=== PATIENT | male | born 1995 | race Caucasian/White ===

== ENCOUNTER 2023-02-23 00:43 | Emergency (ER) | payer MEDICAID, OTHER ==
[2023-02-23] MEDS ORDERED: CEPH500T PO (16:07)
== END 2023-02-23 02:10 | disposition left against medical advice (07) ==
LOC: ER 00:48
DX: L08.9 Local infection of the skin and subcutaneous tissue, unspecified (principal)

== ENCOUNTER 2023-02-23 15:04 | Emergency (ER) | payer MEDICAID ==
[~2023-02-23] VITALS: Ht 185.4 cm; Wt 82.0 kg
[2023-02-23] MEDS ORDERED: NS IV 1000 ML 1,000 ML IV SCH (15:45)
--- NOTE | 2023-02-23 16:00 | ED Lower Extremity ---
General Chief Complaint: Lower Extremity Stated Complaint: PROBLEMS WITH STITCHES ON RIGHT FOOT Nursing Triage Note: PT AMB TO FT WITH C/O STITCHES BUSTING 3 DAYS AGO AFTER HAVING TOES AMPUTATED ON R FOOT FOR DIABETIC REASONS. PT MOVED HERE THIS WEEKEND Source: patient Exam Limitations: no limitations History of Present Illness Date Seen by Provider: Feb 23, 2023 Time Seen by Provider: 15:23 Initial Comments 27-year-old male presents to the ER with concern of infection to his right foot. He reports that approximately 3 to 4 weeks ago he had all of the toes of his right foot amputated due to his diabetes. A few weeks prior to that he had the second and third digit of the left foot amputated as well due to diabetes. Patient reports that 2 days ago the sutures on his right foot popped open because he moved down here and had to unload a [employer] by himself. He complains of pain in his right foot. Denies any order to the wound. No significant purulent drainage. Denies fevers and body aches. The surgeries were completed by Dr. Marquis at [place] in [facility]. Allergies and Home Medications Allergies Coded Allergies: amoxicillin (Verified Allergy, Unknown, Hives, 02/23/23) dihydrostreptomycin (Verified Allergy, Unknown, 02/23/23) Patient Home Medication List Home Medication List Reviewed: Yes Cephalexin (Cephalexin) 500 Mg Tablet, 500 MG PO QID Prescribed by: Darlin Poole on 02/23/23 1607 Review of Systems Constitutional: see HPI Past [id number]-Lmxpok Hx Patient Social History Tobacco Use?: Yes Tobacco type used: Cigarettes Substance use?: Yes Substance type: Marijuana Alcohol Use?: Yes Alcohol Frequency: Once in a while Pt feels they are or have been: No Past Medical History Surgery/Hospitalization HX: DM R AND L TOE AMPUTATIONS Physical Exam Vital Signs Vital Signs - First Documented 02/23/23 15:24 Temp 36.8 Pulse 96 Resp 20 B/P (MAP) 151/103 (119) Pulse Ox 100 O2 Delivery Room Air Capillary Refill : Height, Weight, BMI Height: '" Weight: lbs. oz. kg; 23.00 BMI Method: General Appearance: WD/WN, no apparent distress Neck: supple, normal inspection Cardiovascular: regular rate, rhythm Respiratory: lungs clear, normal breath sounds, no respiratory distress, no accessory muscle use Feet: right foot pain, right foot other (Erythema, bed wound has pink granulated tissue, no significant signs of infection, there is surrounding erythema to the foot no significant purulent drainage) Neurologic/Psychiatric: alert, normal mood/affect Skin: warm/dry, other (Wounds to bilateral feet.) Progress/Results/Core Measures Results/Orders Lab Results Laboratory Tests Test 02/23/23 15:30 Range/Units Glucometer 208 H 70-110 MG/DL Vital Signs/I&O 02/23/23 02/23/23 15:24 16:42 Temp 36.8 36.8 Pulse 96 90 Resp 20 18 B/P (MAP) 151/103 (119) 146/94 Pulse Ox 100 100 O2 Delivery Room Air Room Air Blood Pressure Mean: 119 Progress Progress Note : Progress Note Patient seen and evaluated, resting comfortably in recliner, no acute distress. Wounds do not appear to be significantly infected, but will go ahead and prescribe an oral antibiotic. Patient is currently not taking an antibiotic. Patient has no systemic symptoms, vitals are stable. Lab work was considered, but deferred. Erythema to right foot surrounding wound, wound bed has pink granulated tissue, no significant purulent drainage. Will clean wound really well and place a wet-to-dry dressing. Will have patient follow-up with Dr. Smith, wound care. Also will provide [facility] phone number for patient to establish a primary care provider. Patient is stable for discharge. Discharge instructions and return precautions provided. Departure Impression Primary Impression: Encounter for evaluation of wound Disposition: HOME, SELF-CARE Condition: Stable Departure-Patient Inst. Decision time for Depature: 16:05 Referrals: [facility]/YORDY CORONADO MD Patient Instructions: Wound Care (DC) Add. Discharge Instructions: Continue cleaning and dressing your foot as directed by your surgeon. Call Dr. Smith, wound care, tomorrow to schedule a follow-up appointment. Call [facility] to establish a primary care provider. Complete full course of antibiotic as prescribed, do not stop taking until you have completed the entire prescription. Discard the other antibiotics you have at home. Return if you develop a fever, body aches, or any other new, concerning, or worsening symptoms. All discharge instructions reviewed with patient and/or family. Voiced understanding. Scripts Cephalexin (Cephalexin) 500 Mg Tablet 500 MG PO QID for 7 Days, #28 TAB 0 Refills Prov: DARLIN ALICEA APRN 02/23/23 Copy Copies To 1: YORDY SMITH MD Copies To 2: [facility]/DARLIN WEBB APRN Feb 23, 2023 16:00
[2023-02-23] MEDS ORDERED: CEPH500T PO (16:07)
[2023-02-23 16:42] VITALS: BP 146/94
== END 2023-02-23 16:43 | disposition home or self-care (01) ==
LOC: EDUNIT# 15:04 → ER 15:07
DX: Z48.00 Encounter for change or removal of nonsurgical wound dressing (principal); F17.210 Nicotine dependence, cigarettes, uncomplicated; Z88.0 Allergy status to penicillin
CPT/HCPCS: 82947

== ENCOUNTER → 2023-02-26 | Outpatient (CLI) | payer MEDICAID ==
[~2023-02-26] MED LIST: CEPH500T PO
== END ==
LOC: WOUNDCARE 13:04
PROVIDERS: ATTEND Family Medicine
DX: T81.31XA Disruption of external operation (surgical) wound, not elsewhere classified, initial encounter (principal); I96 Gangrene, not elsewhere classified; L97.522 Non-pressure chronic ulcer of other part of left foot with fat layer exposed; M86.171 Other acute osteomyelitis, right ankle and foot; L03.115 Cellulitis of right lower limb; E11.621 Type 2 diabetes mellitus with foot ulcer; I70.235 Atherosclerosis of native arteries of right leg with ulceration of other part of foot; E11.65 Type 2 diabetes mellitus with hyperglycemia; F17.218 Nicotine dependence, cigarettes, with other nicotine-induced disorders; E11.40 Type 2 diabetes mellitus with diabetic neuropathy, unspecified
CPT/HCPCS: 11042; 87070; 87077; 87186; 87205